=== PATIENT | male | born 1960 ===

== ENCOUNTER 2018-04-18 14:41 | Emergency (ER) | payer BC, OTHER ==
[2018-04-18] MEDS ORDERED: Naproxen 550 mg Tab PO STA (16:34)
[2018-04-18] MEDS ORDERED: Naproxen 550 mg Tab PO ONE (16:44)
--- NOTE | 2018-04-18 16:46 | C.PDOC ---
History Of Present Illness Pt c/o low back pain. Denies recent trauma. Time Seen by Provider: 04/18/18 15:54 Chief Complaint (Nursing): Back Pain History Per: Patient Onset/Duration Of Symptoms: Days (few) Current Symptoms Are (Timing): Still Present Quality Of Discomfort: "Pain" Severity: Moderate Previous Symptoms: Back Pain Associated Symptoms: None Exacerbating Factor(s): Movement Additional History Per: Prior Records Past Medical History Reviewed: Historical Data, Nursing Documentation, Vital Signs Vital Signs: Last Vital Signs Temp 98.8 F 04/18/18 14:57 Pulse 67 04/18/18 14:57 Resp 20 04/18/18 14:57 BP 144/94 H 04/18/18 14:57 Pulse Ox 100 04/18/18 14:57 - Medical History PMH: Hypercholesterolemia Surgical History: No Surg Hx Family History: States: Unknown Family Hx - Social History Hx Tobacco Use: No Hx Alcohol Use: Yes Hx Substance Use: No - Immunization History Hx Tetanus Toxoid Vaccination: No Hx Influenza Vaccination: No Hx Pneumococcal Vaccination: No Review Of Systems Except As Marked, All Systems Reviewed And Found Negative. Constitutional: Negative for: Fever, Weakness Cardiovascular: Negative for: Chest Pain Respiratory: Negative for: Shortness of Breath Gastrointestinal: Negative for: Vomiting, Abdominal Pain Genitourinary: Negative for: Dysuria, Incontinence, Hematuria Musculoskeletal: Positive for: Back Pain Skin: Negative for: Rash Neurological: Negative for: Weakness, Numbness Physical Exam - Physical Exam Appears: Non-toxic, No Acute Distress Skin: Normal Color, Warm, Dry, No Rash Head: Atraumatic, Normacephalic Eye(s): bilateral: PERRL, EOMI Neck: Normal ROM, Supple Gastrointestinal/Abdominal: Soft, No Tenderness, No Mass Back: No CVA Tenderness, No Vertebral Tenderness, Paraspinal Tenderness (lumbar) Extremity: Normal ROM Neurological/Psych: Oriented x3, Normal Motor, Normal Sensation ED Course And Treatment O2 Sat by Pulse Oximetry: 100 Pulse Ox Interpretation: Normal Disposition Counseled Patient/Family Regarding: Diagnosis, Need For Followup, Rx Given - Disposition Referrals: Bertram Suarez Jr., MD [Staff Provider] - Disposition: HOME/ ROUTINE Disposition Time: 16:46 Condition: STABLE Additional Instructions: Follow up with your doctor for further evaluation and treatment. Return to the ER if you develop abdominal pain, trouble urinating, weakness, numbness, worsening of symptoms or if you have any other concerns. Prescriptions: Cyclobenzaprine [Cyclobenzaprine HCl] 10 mg PO TID PRN #15 tab PRN Reason: Muscle Spasm Naproxen 375 mg PO BID PRN #20 tablet PRN Reason: Pain, Moderate (4-7) Instructions: Low Back Pain (DC) Forms: [employer] (Danish) Print Language: CZECH - Clinical Impression Clinical Impression: Low back pain
[2018-04-18 16:55] VITALS: BP 136/80; PULSE 64; RESP 18; TEMP 98.3; O2SAT 98
== END 2018-04-18 16:54 | disposition home or self-care (01) ==
LOC: C.ER 14:41
DX: M54.5 Low back pain (principal)